=== PATIENT | female | born 1985 | race American Indian/Alaskan Native ===

== ENCOUNTER 2016-06-12 22:50 | Emergency (ER) | payer BC, OTHER ==
[2016-06-12] MEDS ORDERED: LIDOCAINE VISCOUS 2% PO ONE (23:20)
[2016-06-12] MEDS ORDERED: ALUM-MAG HYDROX-SIMETH 200-200-20MG/5ML PO ONE (23:20)
--- NOTE | 2016-06-12 23:25 | Emergency Department Report ---
HPI - General Time Seen by Provider: 06/12/16 23:00 - HPI HPI: This is a 31-year-old -[place] female presents to the emergency department with complaint of a four-day history of intermittent upper left abdominal discomfort. It is associated with some occasional nausea without vomiting. She has a history of a stomach ulcer that was diagnosed in 2013 by endoscopy. She is supposed to be taking Protonix for this, and iron pills for a history of anemia, but has not been compliant with this medication. The patient was having some constipation issues so she took some magnesium oxide and has just recently started moving her bowels. She took some Pepto-Bismol on Friday. She said within the bowel started to move and she had some diarrhea that the stool seemed darker. Otherwise she has no obvious rectal bleeding. Otherwise she has a past nuchal history of asthma. She goes to [facility]. When she was seen by gastroenterology and [address] Fuentes. ED Past Medical Hx - Past Medical History Hx Headaches / Migraines: Yes Hx Asthma: Yes (albuterol this am. no recent attacks) Additional medical history: Syncope, Anemia, Ulcer - Surgical History Additional Surgical History: pilonidal cyst removed - Social History Smoking Status: Never Smoker Substance Use Type: Alcohol - Medications Home Medications: Home Medications Medication Instructions Recorded Confirmed Last Taken Type ALBUTEROL Inhaler [ProAir HFA 2 inhalation INHALATION PRN 04/29/13 04/30/13 History Inhaler] Ferrous Sulfate [Iron Supplement] 1 tab PO DAILY 04/29/13 04/30/13 04/29/13 History Fluticasone/Salmeterol [Advair 1 inhalation INHALATION PRN 04/29/13 04/30/13 History Diskus 250-50 mcg] Metoclopramide HCl [Reglan TAB] 5 mg PO TIDAC PRN #20 tablet 02/09/15 Unknown Rx ALBUTEROL Inhaler [ProAir HFA 2 puff IH QID PRN #1 inhalation 06/13/16 Unknown Rx Inhaler] HYDROcodone/APAP 5-325 [Eitzen 1 each PO Q6HR PRN #12 tablet 06/13/16 Unknown Rx 5/325] Ondansetron [Zofran Odt] 4 mg PO Q8HR PRN #10 tab.rapdis 06/13/16 Unknown Rx Pantoprazole [Protonix TAB] 1 tab PO DAILY #30 tablet 06/13/16 Unknown Rx ED Review of Systems ROS: Stated complaint: ABD PAIN Other details as noted in HPI Comment: All other systems reviewed and negative Constitutional: denies: chills, fever Eyes: denies: eye pain, eye discharge, vision change ENT: denies: ear pain, throat pain Respiratory: denies: cough, shortness of breath, wheezing Cardiovascular: denies: chest pain, palpitations Gastrointestinal: abdominal pain, nausea. denies: vomiting Genitourinary: denies: urgency, dysuria, discharge Musculoskeletal: denies: back pain, joint swelling, arthralgia Skin: denies: rash, lesions Neurological: denies: headache, weakness, paresthesias Physical Exam - Physical Exam Physical Exam: GENERAL: The patient is well-developed well-nourished. HEENT: Normocephalic. Atraumatic. Extraocular motions are intact. Patient has moist mucous membranes. Pupils equal reactive to light bilaterally. NECK: Supple. Trachea is midline. CHEST/LUNGS: Clear to auscultation. There is no respiratory distress noted. HEART/CARDIOVASCULAR: Regular. There is no tachycardia. There is no gallop rub or murmur. ABDOMEN: Abdomen is soft, nontender. Unable to reproduce tenderness to palpation. Patient has normal bowel sounds. There is no abdominal distention. SKIN: Skin is warm and dry. NEURO: The patient is awake, alert, and oriented. The patient is cooperative. The patient has no focal neurologic deficits. The patient has normal speech and gait. MUSCULOSKELETAL: There is no tenderness or deformity. There is no limitation range of motion. There is no evidence of acute injury. ED Medical Decision Making - Lab Data Result diagrams: 06/12/16 23:55 06/12/16 23:55 - Radiology Data Radiology results: image reviewed interpreted by me: X-ray of the abdomen shows nonspecific nonobstructive bowel gas. - Medical Decision Making 31-year-old female with a history of gastric ulcer presents with a few days of left upper quadrant abdominal pain. The pain appears to worsen with eating. Labs are unremarkable. Abdominal x-ray does not show any acute process. She feels as if the pain is consistent with a previous gastric ulcer. No blood seen on guaiac testing but there was not much stool to test. Vital signs stable throughout her ED course. She was given a GI cocktail and IV fluid and some Protonix. Upon reevaluation she is feeling slightly improved. She has a primary care doctor and recently saw Dr. Fuentes for gastroenterology. She was given a referral again for this gastroenterology service. She will be given something for pain, nausea and a PPI refill. She will return to the ER with any worsening of her symptoms or any acute distress. - Differential Diagnosis gastric ulcer, duodenal ulcer, pancreatitis, gastritis Critical Care Time: No Critical care attestation.: If time is entered above; I have spent that time in minutes in the direct care of this critically ill patient, excluding procedure time. ED Disposition Clinical Impression: History of stomach ulcers Abdominal pain Qualifiers: Abdominal location: left upper quadrant Qualified Code(s): R10.12 - Left upper quadrant pain Disposition: DISCHARGED TO HOME OR SELFCARE Is pt being admited?: No Condition: Stable Instructions: Abdominal Pain (ED) Additional Instructions: Follow-up with your corrosion control specialist as soon as possible. Return to the emergency department with any worsening of her symptoms or any acute distress. You've been prescribed a medication that is sedating. Therefore this medication cannot be mixed with alcohol, or taken prior to driving, working, or being responsible for children. Prescriptions: ALBUTEROL Inhaler [ProAir HFA Inhaler] 2 puff IH QID PRN #1 inhalation PRN Reason: Shortness Of Breath HYDROcodone/APAP 5-325 [Eitzen 5/325] 1 each PO Q6HR PRN #12 tablet PRN Reason: Pain Ondansetron [Zofran Odt] 4 mg PO Q8HR PRN #10 tab.rapdis PRN Reason: Nausea Pantoprazole [Protonix TAB] 1 tab PO DAILY #30 tablet Referrals: PRIMARY MD GINA [Primary Care Provider] - 3-5 Days NEERU MCGUIRE MD [Staff Physician] - 3-5 Days Time of Disposition: 02:13
[2016-06-13 00:01] LABS: Basophils % (Auto) 0.4 % (0.0-1.8); Hematocrit 36.3 % (30.3-42.9); Hemoglobin 12.1 gm/dl (10.1-14.3); Mean Corpuscular HGB Conc 34 % (30-34); Mean Corpuscular Hemoglobin 31 pg (28-32); Mean Corpuscular Volume 91 fl (79-97); Platelet Count 189 K/mm3 (140-440); Red Blood Count 3.97 M/mm3 (3.65-5.03); Red Cell Distribution Width 12.3 % (13.2-15.2); White Blood Count 8.6 K/mm3 (4.5-11.0)
[2016-06-13 00:21] LABS: Alanine Aminotransferase 12 units/L (7-56); Albumin 3.9 g/dL (3.9-5); Albumin/Globulin Ratio 1.1 %; Alkaline Phosphatase 50 units/L (35-129); Blood Urea Nitrogen 9 mg/dL (7-17); Calcium 8.6 mg/dL (8.4-10.2); Carbon Dioxide 23 mmol/L (22-30); Chloride 97.7 mmol/L (98-107); Glucose 89 mg/dL (65-100); Lipase 19 units/L (13-60); Potassium 3.9 mmol/L (3.6-5.0); Sodium 134 mmol/L (137-145); Total Protein 7.6 g/dL (6.3-8.2)
[2016-06-13 00:28] LABS: Anion Gap 17 mmol/L
[2016-06-13] MEDS ORDERED: NACL 0.9% 500 ML 500 ML IV ONE (01:11)
[2016-06-13] MEDS ORDERED: PROTONIX IV ONE (01:11)
[2016-06-13 02:19] VITALS: BP 124/76
--- NOTE | 2016-06-13 09:04 | XRay Report ---
ABDOMINAL SERIES 2 VIEWS: 06/12/16 22:50:00 CLINICAL: Abdominal pain. FINDINGS: Supine and upright views demonstrate a normal bowel gas pattern with a moderate volume of stool in the colon. No distended small bowel and no air-fluid levels. No pneumoperitoneum. No mass or suspicious calcifications. The bones and soft tissues are normal. IMPRESSION: Negative abdomen.
== END 2016-06-13 02:30 | disposition home or self-care (01) ==
LOC: ED 22:50
DX: R10.12 Left upper quadrant pain (principal); G43.909 Migraine, unspecified, not intractable, without status migrainosus; J45.909 Unspecified asthma, uncomplicated; Z87.11 Personal history of peptic ulcer disease
CPT/HCPCS: 36415; 74020; 80053; 83690; 84703; 85025; 96374; 99284; C9113; J7040

== ENCOUNTER 2019-03-03 09:07 | Outpatient (CLI) | payer BC ==
[2019-03-03 09:30] LABS: Basophils # (Auto) 0.1 K/mm3 (0.0-0.1); Basophils % (Auto) 0.8 % (0.0-1.8); Eosinophils # (Auto) 0.2 K/mm3 (0.0-0.4); Eosinophils % (Auto) 2.3 % (0.0-4.3); Hematocrit 35.3 % (30.3-42.9); Hemoglobin 12.3 gm/dl (10.1-14.3); Lymphocytes # (Auto) 2.7 K/mm3 (1.2-5.4); Lymphocytes % (Auto) 31.7 % (13.4-35.0); Mean Corpuscular HGB Conc 35 % (30-34); Mean Corpuscular Volume 89 fl (79-97); Monocytes # (Auto) 0.6 K/mm3 (0.0-0.8); Monocytes % (Auto) 7.3 % (0.0-7.3); Platelet Count 223 K/mm3 (140-440); Red Blood Count 3.97 M/mm3 (3.65-5.03); Red Cell Distribution Width 12.1 % (13.2-15.2)
[2019-03-03 09:32] LABS: Bilirubin,Urine NEG (Negative); Blood,Urine NEG (Negative); Color,Urine Yellow (Yellow); Protein,Urine <15 mg/dL mg/dL (Negative)
[2019-03-03 09:51] LABS: Alanine Aminotransferase 9 units/L (7-56); Albumin 3.9 g/dL (3.9-5); BUN/Creatinine Ratio 16; Blood Urea Nitrogen 11 mg/dL (7-17); Calcium 9.1 mg/dL (8.4-10.2); Chol/HDL Ratio 2.76 %; HDL Cholesterol 63 mg/dL (40-59); Hemolysis Index 3; LDL Cholesterol,Direct 111 mg/dL (50-130)
[2019-03-07 12:29] LABS: Vitamin D, 25-OH, D2 <4 ng/mL
[2019-03-08 07:05] LABS: HIV-1 Antibody Differentiation SEE SCANNED RESULT; HIV-2 Antibody Differentiation SEE SCANNED RESULT
== END 2019-03-03 09:08 | disposition home or self-care (01) ==
LOC: LAB 09:07
PROVIDERS: ATTEND Internal Medicine
DX: Z00.00 Encounter for general adult medical examination without abnormal findings (principal); E55.9 Vitamin D deficiency, unspecified; R53.83 Other fatigue; E78.2 Mixed hyperlipidemia
CPT/HCPCS: 36415; 80053; 80061; 81001; 82306; 84146; 85025; 86689